=== PATIENT | female | born 1990 | race Caucasian/White ===

== ENCOUNTER 2017-11-22 00:24 | Inpatient (IN) | payer BC ==
[2017-11-22] MEDS ORDERED: Promethazine INJ(RESTRICTED)* 25 MG/ML 1 ML VIAL ONE (01:09)
[2017-11-22] MEDS ORDERED: Nalbuphine* 20 MG/ML 1 ML VIAL ONE (01:09)
[2017-11-22] MEDS ORDERED: Phenylephrine IV* 40 MCG/ML 10 ML SYRINGE ONE (06:52)
[2017-11-22 08:01] LABS: ABS Basophils 0 10^3/ul (0-0.2); ABS Eosinophils 0 10^3/ul (0-0.6); ABS Lymphocytes 1.4 10^3/ul (1.0-4.8); ABS Monocytes 0.6 10^3/ul (0-0.8); ABS Neutrophils 17.8 10^3/ul (1.5-7.7); ABS Nucleated RBC 0 10^3/ul; Eosinophil % 0 % (0-6); Hematocrit 37 % (35-47); Hemoglobin 12.5 g/dl (12.0-16.0); Lymphocyte % 6.9 % (25-47); Mean Corpuscular HGB Conc 34 g/dl (31-36); Mean Corpuscular Hemoglobin 30 pg (27-31); Mean Corpuscular Volume 88 fL (80-97); Mean Platelet Volume 9.2 um3 (7.4-10.4); Nucleated Red Blood Cells % 0; Platelet Count 160 10^3/ul (150-450); Red Blood Count 4.23 10^6/ul (4.0-5.4); Red Cell Distribution Width 14 % (10.5-15); White Blood Count 19.7 10^3/ul (3.5-10.8)
[2017-11-22] MEDS: Penicillin G Potassium IV* 5,000,000 UNITS in NS 0.9% 100 ML* 100 ML IVPB ONE (08:11)
[2017-11-22] MEDS ORDERED: OBEPIDURAL* 250 ML EPIDURAL ONE (09:06)
[2017-11-22] MEDS ORDERED: Phenylephrine IV* 40 MCG/ML 10 ML SYRINGE IV PUSH PRN (10:32)
[2017-11-22] MEDS ORDERED: Famotidine TAB* 20 MG PO PRN (10:32)
[2017-11-22] MEDS ORDERED: Sodium Citrate/Citric Acid* 15 ML UDC PO PRN (10:32)
[2017-11-22] MEDS ORDERED: Oxytocin in LR* 20 UNITS/1,000 ML BAG IVPB SCH ×2 (11:00→19:00)
[2017-11-22] MEDS ORDERED: OBEPIDURAL* 250 ML EPIDURAL SCH (11:00)
[2017-11-22] MEDS: Penicillin G Potassium IV* 2,500,000 UNITS in NS 0.9% 100 ML* 100 ML IVPB SCH ×2 (12:14→16:09)
[2017-11-22] MEDS ORDERED: Heparin VIAL(*) 5000 UNITS/ML VIAL (FIVE THOUSAND) SUBCUT SCH (14:00)
[2017-11-22] MEDS ORDERED: Witch Hazel PAD* JAR TOPICAL PRN (18:29)
[2017-11-22] MEDS ORDERED: Glycerin ADULT SUPP PR PRN (18:29)
[2017-11-22] MEDS ORDERED: Acetaminophen TAB* 325 MG PO PRN (18:29)
[2017-11-22] MEDS ORDERED: Varicella Virus Vaccine Live* 0.5 ML VIAL SUBCUT ONE (18:29)
[2017-11-22] MEDS ORDERED: Dibucaine 1% 28.35 GM TUBE PR PRN (18:29)
[2017-11-22] MEDS: Docusate CAP* 100 MG PO SCH (21:14)
[2017-11-23 07:06] LABS: ABS Basophils 0 10^3/ul (0-0.2); ABS Eosinophils 0.1 10^3/ul (0-0.6); ABS Lymphocytes 3.2 10^3/ul (1.0-4.8); ABS Monocytes 1.1 10^3/ul (0-0.8); ABS Neutrophils 16.4 10^3/ul (1.5-7.7); ABS Nucleated RBC 0 10^3/ul; Eosinophil % 0.4 % (0-6); Hematocrit 28 % (35-47); Hemoglobin 9.5 g/dl (12.0-16.0); Lymphocyte % 15.4 % (25-47); Mean Corpuscular HGB Conc 34 g/dl (31-36); Mean Corpuscular Hemoglobin 30 pg (27-31); Mean Corpuscular Volume 88 fL (80-97); Mean Platelet Volume 8.6 um3 (7.4-10.4); Nucleated Red Blood Cells % 0; Platelet Count 134 10^3/ul (150-450); Red Blood Count 3.13 10^6/ul (4.0-5.4); Red Cell Distribution Width 14 % (10.5-15); White Blood Count 20.8 10^3/ul (3.5-10.8)
[2017-11-23] MEDS: Penicillin G Potassium IV* 5,000,000 UNITS in NS 0.9% 100 ML* 100 ML IVPB ONE (07:23)
[2017-11-23] MEDS: Penicillin G Potassium IV* 2,500,000 UNITS in NS 0.9% 100 ML* 100 ML IVPB SCH (07:24)
[2017-11-23] MEDS: Simethicone TAB* 80 MG TAB.CHEW PO SCH ×2 (07:26→07:31)
[2017-11-23] MEDS: Docusate CAP* 100 MG PO SCH ×2 (08:16→19:59)
[2017-11-23] MEDS: Ferrous Gluconate TAB* 324 MG TAB PO SCH ×2 (08:16→21:23)
[2017-11-23] MEDS: Ibuprofen TAB* 600 MG PO PRN ×2 (08:17→19:59)
[2017-11-24] MEDS: Docusate CAP* 100 MG PO SCH ×2 (00:23→08:39)
[2017-11-24] MEDS: Ferrous Gluconate TAB* 324 MG TAB PO SCH (08:39)
[2017-11-24 10:09] VITALS: BP 120/76
== END 2017-11-24 13:30 | disposition home or self-care (01) | DRG 560 ==
LOC: MCHOBOUT 00:24 → MCHOB 07:44
PROVIDERS: ADMIT Obstetrics & Gynecology; ATTEND Obstetrics & Gynecology
PROC: 10E0XZZ Delivery of Products of Conception, External Approach (ICD-10-PCS; principal; 2017-11-22)
PROC: 0KQM0ZZ Repair Perineum Muscle, Open Approach (ICD-10-PCS; 2017-11-22)
DX: O48.0 Post-term pregnancy (principal); O70.0 First degree perineal laceration during delivery; O69.81X0 Labor and delivery complicated by cord around neck, without compression, not applicable or unspecified; O90.81 Anemia of the puerperium; D64.9 Anemia, unspecified; Z37.0 Single live birth; Z3A.40 40 weeks gestation of pregnancy
CPT/HCPCS: 36415; 85025; 86850; 86900; 86901; A9270-GY; J2300; J2540; J2550